=== PATIENT | female | born 1950 | race Caucasian/White ===

== ENCOUNTER 2018-05-27 14:24 | Emergency (ER) | payer BC ==
[2018-05-27] MEDS ORDERED: Dextrose 50% SYRINGE Inj (50 ml) ONE (14:28)
--- NOTE | 2018-05-27 14:39 | ED PDOC ---
HPI: Altered Mental Status Time Seen by Provider: 05/27/18 14:27 Chief Complaint (Nursing): Altered Mental Status Chief Complaint (Provider): Dizziness and unresponsive History Per: Patient History/Exam Limitations: Clinical Condition Onset/Duration Of Symptoms: Days (today) Current Symptoms Are (Timing): Still Present Additional Complaint(s): [place]. [place] the [place] and got dizzy. Sat down, was sweating, and then became unresponsive. EMS came and brought to the ER. Here sugar was 23 in triage. Pt. not responsive verbally or to commands. Limited H and P. Past Medical History Reviewed: Nursing Documentation, Vital Signs Vital Signs: Last Vital Signs Temp Pulse 66 05/27/18 14:27 Resp 18 05/27/18 14:27 BP 155/85 H 05/27/18 14:27 Pulse Ox 96 05/27/18 14:27 - Medical History PMH: Diabetes - Family History Family History: States: Unknown Family Hx - Allergies Allergies/Adverse Reactions: Allergies Allergy/AdvReac Type Severity Reaction Status Date / Time No Known Allergies Allergy Verified 05/27/18 14:36 Review of Systems Review Of Systems: ROS cannot be obtained secondary to pt's inabilty to answer questions. Physical Exam - Reviewed Nursing Documentation Reviewed: Yes Vital Signs Reviewed: Yes - Physical Exam Appears: Positive for: Uncomfortable Head Exam: Positive for: ATRAUMATIC, NORMAL INSPECTION, NORMOCEPHALIC Skin: Positive for: Diaphoresis Eye Exam: Positive for: PERRL ENT: Positive for: Normal ENT Inspection Neck: Positive for: Normal, Supple Cardiovascular/Chest: Positive for: Regular Rate, Rhythm Respiratory: Positive for: CNT, Normal Breath Sounds Gastrointestinal/Abdominal: Positive for: Normal Exam, Soft. Negative for: Tenderness Back: Positive for: Normal Inspection. Negative for: L CVA Tenderness, R CVA Tenderness Extremity: Negative for: Tenderness, Pedal Edema Neurologic/Psych: Positive for: Other (not responding to verbal commands; response with movement on pain). Negative for: Alert, Oriented - Laboratory Results Result Diagrams: 05/27/18 14:51 05/27/18 14:51 Interpretation Of Abn Labs: glucose low - ECG ECG: Positive for: Interpreted By Me, Viewed By Me ECG Rhythm: Positive for: Normal QRS, Normal ST Segment, Sinus Rhythm O2 Sat by Pulse Oximetry: 96 Pulse Ox Interpretation: Normal - Progress ED Course And Treament: 1440: 2 amps D50 given to pt. Pt. became fully responsive in 2 minutes. States she has htn, chol, dm. Had food today, but not much. Takes metformin, glipizide, insulin occasionally, and another med for dm. Takes htn and chol meds. Pt. does not remember incident. Denies any chest pain, dyspnea, weakness , headaches, dizziness currently. No numbness, tingles. Moving all extremities. 1556: Pt. states she only took her usual dosing today of metformin and glipezide. Wants to leave and not get further evaluation and treatment. Is aaox3. Communicating with no issues. Has capacity to make decisions. Is aware that if her sugar drops she can have decreased functioning or form the sugar being low or from an injury if she becomes unresponsive. Pt. willing to take risk and wants to go. States she only had breakfast today at 7am. Ambulated with no issues. Mini Mental Status Exam intact. - Critical Care Total Time (In Min): 30 Documented Critical Care: Time excludes all time spent performint seperately billable procedures Disposition - Clinical Impression Clinical Impression: Hypoglycemia, Altered mental status - Patient ED Disposition Is Patient to be Admitted: Yes Counseled Patient/Family Regarding: Studies Performed, Diagnosis - Disposition Disposition: Against Medical Advice Disposition Time: 15:39 Condition: STABLE Additional Instructions: You are going against medical advise. You are aware of possible or decreased functioning from not getting full evaluation and treatment for your low sugar. You can get injured if you become unresponsive if your sugar goes very low. Instructions: Low Blood Sugar, Adult (DC), Altered Mental Status (DC) Forms: [employer] ([place]ian)
[2018-05-27] MEDS ORDERED: Sodium Chloride 0.9% 500 ML IV STA (14:42)
[2018-05-27] MEDS ORDERED: Dextrose 50% SYRINGE Inj (50 ml) IVP STA ×2 (14:43)
[2018-05-27 15:01] LABS: VENOUS BLOOD GAS BASE EXCESS -1.1 mmol/L (0.0-2.0); VENOUS BLOOD GAS PCO2 53 mmHg (40-60); VENOUS BLOOD GAS PO2 41 mm/Hg (30-55)
[2018-05-27 15:06] LABS: BASO # 0.1 K/uL (0.0-0.2); BASO % 1.1 % (0.0-2.0); EOS # 0.3 K/uL (0.0-0.7); EOS % 4.9 % (0.0-4.0); HEMOGLOBIN 12.8 g/dL (12.0-16.0); LYMPH # 2.6 K/uL (1.0-4.3); LYMPH % 41.1 % (20.0-40.0); MEAN CELL VOLUME 96.4 fl (81.0-99.0); MEAN CORPUSCULAR HEMOGLOBIN 32.2 pg (27.0-31.0); MEAN CORPUSCULAR HGB CONC 33.4 g/dL (33.0-37.0); MEAN PLATELET VOLUME 8.7 fl (7.2-11.7); MONO # 0.5 K/uL (0.0-0.8); MONO % 8.2 % (0.0-10.0); NEUT # 2.9 K/uL (1.8-7.0); NEUT % 44.7 % (50.0-75.0); NRBC % 0.2 % (0.0-0.0); RBC 3.96 Mil/uL (3.80-5.20); RED CELL DISTRIBUTION WIDTH 13.9 % (11.5-14.5); WHITE BLOOD COUNT 6.4 K/uL (4.8-10.8)
[2018-05-27 15:22] LABS: ALB/GLOB RATIO 1.6 (1.0-2.1); ALBUMIN 3.9 g/dL (3.5-5.0); ALT/SGPT 15 U/L (9-52); AST/SGOT 24 U/L (14-36); BLOOD UREA NITROGEN 19 mg/dl (7-17); CALCIUM 8.6 mg/dL (8.4-10.2); GFR AFRICAN-AMERICAN > 60; GFR NON-AFRICAN AMERICAN > 60
[2018-05-27 16:28] VITALS: BP 154/82; PULSE 78; RESP 18; TEMP 97.6; O2SAT 100
--- NOTE | 2018-05-31 11:57 | CARD ---
APPROVED REPORT Date of service: 05/27/2018 EKG Measurement Heart [id number] <Conclusion> Normal sinus rhythm Normal ECG
== END 2018-05-27 15:50 | disposition left against medical advice (07) ==
LOC: H.ER 14:24
DX: R41.82 Altered mental status, unspecified (principal); E11.65 Type 2 diabetes mellitus with hyperglycemia
CPT/HCPCS: 80053; 82803; 82948; 84484; 85025; 93005; 96374; 99285; J7040